=== PATIENT | male | born 1990 | race Caucasian/White ===

== ENCOUNTER 2017-10-17 17:55 | Inpatient (IN) | payer MEDICAID ==
[~2017-10-17] VITALS: Ht 172.7 cm; Wt 73.0 kg
[~2017-10-17 17:55] MED LIST: CEPH500C5 PO; HYDR-569 PO
[2017-10-17] MEDS ORDERED: CefTRIAXone 2gm/NS 100ml IVPB 100 ML IV ONE (20:45)
[2017-10-17] MEDS ORDERED: vancomycin/NS 1 GM ADD-VANTAGE 250 ML IV ONE (20:45)
[2017-10-17] MEDS ORDERED: normal saline 1000ML IV soln IV ONE (20:45)
[2017-10-17] MEDS ORDERED: temazepam 15mg capsule PO PRN (21:00)
[2017-10-17] MEDS ORDERED: iohexol 300mg/ml 100ml inj. ONE (21:00)
[2017-10-17 21:25] LABS: BASOPHILS % (AUTO) 0.2 % (0-1); EOSINOPHILS # (AUTO) 0.3 X10'3 (0-0.9); EOSINOPHILS % (AUTO) 3.4 % (0-6); HEMATOCRIT 33.8 % (42.0-52.0); HEMOGLOBIN 11.6 g/dl (14.0-17.9); LYMPHOCYTES # (AUTO) 2.1 X10'3 (1.1-4.8); LYMPHOCYTES % (AUTO) 27.3 % (21-51); MEAN CORPUSCULAR HEMOGLOBIN 28.5 PG (27.0-31.0); MEAN CORPUSCULAR HGB CONC 34.2 % (33.0-36.5); MEAN CORPUSCULAR VOLUME 83.2 FL (78-98); MEAN PLATELET VOLUME 6.7 FL (7.4-10.4); MONOCYTES # (AUTO) 0.6 X10'3 (0-0.9); MONOCYTES % (AUTO) 8.2 % (2-12); NEUTROPHILS # (AUTO) 4.6 X10'3 (1.8-7.7); NEUTROPHILS % (AUTO) 60.9 % (42-75); PLATELET COUNT 247 X10'3 (140-440); RED BLOOD COUNT 4.06 X10'6 (4.70-6.10); WHITE BLOOD COUNT 7.5 X10'3 (4.5-11.0)
[2017-10-17 21:34] LABS: INR 0.9 INR; PARTIAL THROMBOPLASTIN TIME 29 SECONDS (22-32); PROTHROMBIN TIME 9.4 SECONDS (9.0-12.0)
[2017-10-17] MEDS ORDERED: HYDROcodone/acetaminophen 5mg/325mg tablet PO ONE (21:40)
[2017-10-17 21:50] LABS: ALANINE AMINOTRANSFERASE 62 U/L (12-78); ALBUMIN 3.2 G/DL (3.4-5.0); ALBUMIN/GLOBULIN RATIO 0.7 (1.1-1.5); ALKALINE PHOSPHATASE 94 IU/L (46-116); ANION GAP 11 (8-16); ASPARTATE AMINO TRANSFERASE 34 U/L (10-37); BILIRUBIN,TOTAL 0.2 MG/DL (0.1-1.0); BLOOD UREA NITROGEN 12 MG/DL (7-18); BUN/CREATININE RATIO 16.4 (5.4-32.0); CHLORIDE 107 MMOL/L (99-107); CREATININE 0.73 MG/DL (0.60-1.10); GLUCOSE 96 MG/DL (70-104); MAGNESIUM 2.3 MG/DL (1.5-2.4); POTASSIUM 3.4 MMOL/L (3.5-5.1); SODIUM 145 MMOL/L (135-145); TOTAL CARBON DIOXIDE 27.4 MMOL/L (24-32); TOTAL PROTEIN 7.5 G/DL (6.4-8.2); eGFR > 90 ML/MIN
[2017-10-17 21:58] LABS: COLOR,URINE YELLOW (Yellow); GLUCOSE, URINE NEGATIVE (Neg); KETONES,URINE NEGATIVE (Neg); LEUKOCYTE ESTERASE ,URINE NEGATIVE (Neg); NITRITES, URINE NEGATIVE (Neg); OCCULT BLOOD,URINE NEGATIVE (Neg); PH,URINE 6.5 (4.8-8.0); PROTEIN,URINE NEGATIVE (Neg)
[2017-10-17 22:01] LABS: AMORPHOUS PHOSPHATES 2+; BACTERIA,URINE FEW /HPF (Neg); CLARITY,URINE SLIGHTLY CLOUDY (Clear); MUCUS STRANDS FEW /LPF (Neg); RBC,URINE NONE SEEN /HPF (0-2); SQUAMOUS EPITHELIAL CELL,UR FEW /LPF (FEW); UA COLLECTION TYPE VOIDED; WBC,URINE NONE SEEN /HPF (0-4)
[2017-10-17 22:02] LABS: C-REACTIVE PROTEIN 8.15 MG/DL (0.0-0.5)
[2017-10-17 22:03] LABS: URINE AMPHETAMINE SCREEN POSITIVE (Neg); URINE BARBITUATE SCREEN NEGATIVE (Neg); URINE BENZODIAZEPINES SCREEN NEGATIVE (Neg); URINE CANNABINOID SCREEN NEGATIVE (Neg); URINE COCAINE SCREEN NEGATIVE (Neg); URINE METHADONE SCREEN NEGATIVE (Neg); URINE OPIATE SCREEN POSITIVE (Neg); URINE PHENCYCLIDINE SCREEN NEGATIVE (Neg)
[2017-10-17] MEDS ORDERED: ketorolac trometh. 30mg/ml inj. IV ONE (22:10)
[2017-10-17] MEDS ORDERED: ondansetron/PF 4mg/2ml inj IV PRN (23:05)
[2017-10-17] MEDS ORDERED: mag hydrox/Alum hydrox/simeth 30ml oral suspension PO PRN (23:05)
[2017-10-17] MEDS ORDERED: HYDROcodone/acetaminophen 5mg/325mg tablet PO PRN (23:05)
[2017-10-17] MEDS ORDERED: magnesium hydroxide 30ml (MOM) UD suspension PO PRN (23:05)
[2017-10-17] MEDS ORDERED: acetaminophen 325mg tablet PO PRN ×2 (23:05)
[2017-10-18] MEDS: piperacillin/tazo 4.5gm/100ml 100 ML IV SCH ×3 (00:23→16:16)
[2017-10-18] MEDS: HYDROcodone/acetaminophen 10/325mg tab PO PRN ×2 (05:51→22:07)
[2017-10-18 06:41] LABS: BASOPHILS % (AUTO) 0.4 % (0-1); EOSINOPHILS # (AUTO) 0.2 X10'3 (0-0.9); EOSINOPHILS % (AUTO) 3.3 % (0-6); HEMATOCRIT 30.6 % (42.0-52.0); HEMOGLOBIN 10.6 g/dl (14.0-17.9); LYMPHOCYTES # (AUTO) 1.7 X10'3 (1.1-4.8); LYMPHOCYTES % (AUTO) 29.1 % (21-51); MEAN CORPUSCULAR HEMOGLOBIN 28.6 PG (27.0-31.0); MEAN CORPUSCULAR HGB CONC 34.5 % (33.0-36.5); MEAN PLATELET VOLUME 6.5 FL (7.4-10.4); MONOCYTES # (AUTO) 0.4 X10'3 (0-0.9); MONOCYTES % (AUTO) 6.2 % (2-12); NEUTROPHILS # (AUTO) 3.5 X10'3 (1.8-7.7); PLATELET COUNT 220 X10'3 (140-440); RED BLOOD COUNT 3.69 X10'6 (4.70-6.10); RED CELL DISTRIBUTION WIDTH 16.5 % (11.5-14.5); WHITE BLOOD COUNT 5.7 X10'3 (4.5-11.0)
[2017-10-18 07:01] LABS: ALBUMIN 2.7 G/DL (3.4-5.0); ANION GAP 10 (8-16); BLOOD UREA NITROGEN 9 MG/DL (7-18); BUN/CREATININE RATIO 14.1 (5.4-32.0); CALCIUM 8.5 MG/DL (8.5-10.1); CHLORIDE 109 MMOL/L (99-107); CREATININE 0.64 MG/DL (0.60-1.10); GLUCOSE 97 MG/DL (70-104); SODIUM 144 MMOL/L (135-145); TOTAL CARBON DIOXIDE 24.9 MMOL/L (24-32); eGFR > 90 ML/MIN
[2017-10-18] MEDS: enoxaparin 40mg/0.4ml syringe SUBCUT SCH (07:45)
[2017-10-18] MEDS ORDERED: vancomycin/NS 1 GM ADD-VANTAGE 250 ML IV SCH (10:00)
[2017-10-18] MEDS: vancomycin/NS 1 GM ADD-VANTAGE 250 ML IV SCH ×2 (10:05→22:07)
[2017-10-18] MEDS: morphine 4 MG/ML inj SYRINge IV PRN (11:54)
[2017-10-18 20:05] VITALS: BP 125/90
[2017-10-19] VITALS: BP 127/77
[2017-10-19] MEDS: piperacillin/tazo 4.5gm/100ml 100 ML IV SCH ×3 (03:52→16:31)
[2017-10-19] MEDS: vancomycin/NS 1 GM ADD-VANTAGE 250 ML IV SCH ×3 (05:01→22:56)
[2017-10-19 07:08] VITALS: BP 109/61
[2017-10-19] MEDS: enoxaparin 40mg/0.4ml syringe SUBCUT SCH (07:39)
[2017-10-19 07:56] LABS: BASOPHILS % (AUTO) 0.4 % (0-1); EOSINOPHILS # (AUTO) 0.3 X10'3 (0-0.9); HEMATOCRIT 34.1 % (42.0-52.0); HEMOGLOBIN 11.8 g/dl (14.0-17.9); LYMPHOCYTES # (AUTO) 1.6 X10'3 (1.1-4.8); LYMPHOCYTES % (AUTO) 24.4 % (21-51); MEAN CORPUSCULAR HEMOGLOBIN 29.1 PG (27.0-31.0); MEAN CORPUSCULAR HGB CONC 34.6 % (33.0-36.5); MEAN CORPUSCULAR VOLUME 84.1 FL (78-98); MEAN PLATELET VOLUME 6.2 FL (7.4-10.4); MONOCYTES # (AUTO) 0.4 X10'3 (0-0.9); MONOCYTES % (AUTO) 6.9 % (2-12); NEUTROPHILS # (AUTO) 4.1 X10'3 (1.8-7.7); NEUTROPHILS % (AUTO) 64.3 % (42-75); PLATELET COUNT 314 X10'3 (140-440); RED BLOOD COUNT 4.06 X10'6 (4.70-6.10); RED CELL DISTRIBUTION WIDTH 16.6 % (11.5-14.5); WHITE BLOOD COUNT 6.4 X10'3 (4.5-11.0)
[2017-10-19 08:05] LABS: ANION GAP 13 (8-16); BLOOD UREA NITROGEN 9 MG/DL (7-18); BUN/CREATININE RATIO 13.8 (5.4-32.0); CALCIUM 8.7 MG/DL (8.5-10.1); CHLORIDE 106 MMOL/L (99-107); CREATININE 0.65 MG/DL (0.60-1.10); GLUCOSE 110 MG/DL (70-104); POTASSIUM 3.5 MMOL/L (3.5-5.1); SODIUM 143 MMOL/L (135-145); TOTAL CARBON DIOXIDE 24.1 MMOL/L (24-32); eGFR > 90 ML/MIN
[2017-10-19] MEDS ORDERED: VANCOMYCIN LEVEL IV NR (09:30)
[2017-10-19 11:00] VITALS: BP 122/68
[2017-10-19] MEDS: HYDROcodone/acetaminophen 10/325mg tab PO PRN ×2 (11:00→16:31)
[2017-10-19 19:00] VITALS: BP 131/86
[2017-10-19] MEDS: lactobacillus rhamnosus 10,000 MMU CELLS/CAPSULE PO SCH (20:18)
[2017-10-19] MEDS: morphine 4 MG/ML inj SYRINge IV PRN (23:02)
[2017-10-20] VITALS: BP 114/85
[2017-10-20] MEDS: piperacillin/tazo 4.5gm/100ml 100 ML IV SCH ×3 (02:25→16:00)
[2017-10-20] MEDS ORDERED: VANCOMYCIN LEVEL IV NR ×2 (05:30→13:30)
[2017-10-20] MEDS: vancomycin/NS 1 GM ADD-VANTAGE 250 ML IV SCH (06:14)
[2017-10-20] MEDS: morphine 4 MG/ML inj SYRINge IV PRN ×2 (06:17→12:43)
[2017-10-20 06:31] LABS: BASOPHILS % (AUTO) 0.3 % (0-1); EOSINOPHILS # (AUTO) 0.2 X10'3 (0-0.9); HEMATOCRIT 35.3 % (42.0-52.0); HEMOGLOBIN 12.3 g/dl (14.0-17.9); LYMPHOCYTES # (AUTO) 2.1 X10'3 (1.1-4.8); LYMPHOCYTES % (AUTO) 30.7 % (21-51); MEAN CORPUSCULAR HEMOGLOBIN 28.7 PG (27.0-31.0); MEAN CORPUSCULAR HGB CONC 34.8 % (33.0-36.5); MEAN CORPUSCULAR VOLUME 82.6 FL (78-98); MONOCYTES # (AUTO) 0.5 X10'3 (0-0.9); MONOCYTES % (AUTO) 6.8 % (2-12); NEUTROPHILS # (AUTO) 4.1 X10'3 (1.8-7.7); NEUTROPHILS % (AUTO) 59.2 % (42-75); PLATELET COUNT 351 X10'3 (140-440); RED BLOOD COUNT 4.27 X10'6 (4.70-6.10); RED CELL DISTRIBUTION WIDTH 16.5 % (11.5-14.5)
[2017-10-20 06:43] LABS: ALBUMIN 3.3 G/DL (3.4-5.0); ANION GAP 9 (8-16); BLOOD UREA NITROGEN 14 MG/DL (7-18); BUN/CREATININE RATIO 17.9 (5.4-32.0); CALCIUM 9.1 MG/DL (8.5-10.1); CHLORIDE 106 MMOL/L (99-107); CREATININE 0.78 MG/DL (0.60-1.10); GLUCOSE 80 MG/DL (70-104); POTASSIUM 3.7 MMOL/L (3.5-5.1); SODIUM 142 MMOL/L (135-145); TOTAL CARBON DIOXIDE 27.5 MMOL/L (24-32); eGFR > 90 ML/MIN
[2017-10-20 07:00] VITALS: BP 110/57
[2017-10-20 07:54] LABS: VANCOMYCIN,TROUGH 12.8 UG/ML (6.0-14.0)
[2017-10-20] MEDS: enoxaparin 40mg/0.4ml syringe SUBCUT SCH (07:55)
[2017-10-20] MEDS: lactobacillus rhamnosus 10,000 MMU CELLS/CAPSULE PO SCH (07:55)
[2017-10-20 11:00] VITALS: BP 109/39
[2017-10-20] MEDS ORDERED: vancomycin inj 1,250 MG in normal saline 250ml IV soln 250 ML IV SCH (14:00)
[2017-10-20] MEDS ORDERED: SULF1TAB49 PO (15:28)
[2017-10-21] MEDS ORDERED: VANCOMYCIN LEVEL IV NR (13:30)
== END 2017-10-20 19:45 | disposition home or self-care (01) | DRG 383 ==
LOC: ER 17:56 → ED HOLD 23:05 → MED 3N 10-18 20:51
PROVIDERS: ADMIT Hospitalist; ATTEND Internal Medicine
PROC: BQ2S1ZZ Computerized Tomography (CT Scan) of Left Lower Extremity using Low Osmolar Contrast (ICD-10-PCS; principal; 2017-10-17)
DX: L03.116 Cellulitis of left lower limb (principal); F15.10 Other stimulant abuse, uncomplicated; F11.90 Opioid use, unspecified, uncomplicated; M79.89 Other specified soft tissue disorders; Z79.899 Other long term (current) drug therapy
CPT/HCPCS: 36415; 71045; 73610; 73701; 80048; 80053; 80202; 80305; 81001; 83605; 83735; 84145; 85025; 85610; 85651; 85730; 86140; 87040; 87070; 93005; 93971; 96365; 96375; 99285; J0696; J1650; J1885; J2270; J2543; J3370; J7030; Q9967

== ENCOUNTER 2018-01-30 00:32 | Emergency (ER) | payer MEDICAID ==
[~2018-01-30] VITALS: Ht 167.6 cm; Wt 59.1 kg
[~2018-01-30 00:32] MED LIST changes: -CEPH500C5 PO
[2018-01-30 00:38] VITALS: BP 129/60
[2018-01-30] MEDS ORDERED: ceFAZolin 1GM/D5W- ADD-VANTAGE 50 ML IV ONE (01:05)
[2018-01-30] MEDS ORDERED: normal saline 1000ml 1,000 ML IV ONE (01:05)
[2018-01-30] MEDS ORDERED: doxycycline hyclate 100mg tablet.DR PO ONE (01:05)
[2018-01-30] MEDS ORDERED: ondansetron/PF 4mg/2ml inj IV ONE (01:05)
[2018-01-30] MEDS ORDERED: iohexol 300mg/ml 100ml inj. ONE (01:29)
[2018-01-30] MEDS ORDERED: DOXY100C43 PO (01:33)
[2018-01-30] MEDS ORDERED: CEPH250T PO (01:33)
[2018-01-30] MEDS ORDERED: ondansetron 4mg rapidly disintigrating tab PO ONE (01:35)
[2018-01-30] MEDS ORDERED: cephalexin 250mg capsule PO ONE (01:35)
== END 2018-01-30 01:45 ==
LOC: ER 00:33
DX: T84.54XD Infection and inflammatory reaction due to internal left knee prosthesis, subsequent encounter (principal); F15.90 Other stimulant use, unspecified, uncomplicated; F11.90 Opioid use, unspecified, uncomplicated; Z98.890 Other specified postprocedural states; Z79.2 Long term (current) use of antibiotics; Z79.899 Other long term (current) drug therapy
CPT/HCPCS: 99284; J7030; Q9967

== ENCOUNTER 2023-11-11 14:46 | Outpatient (CLI) | payer MEDICAID ==
[~2023-11-11 14:46] MED LIST changes: +HYDR-4383 PO; -HYDR-569 PO
== END 2023-11-11 23:59 | disposition home or self-care (01) ==
LOC: RAD 14:46
PROVIDERS: ATTEND Physician Assistant
DX: R00.1 Bradycardia, unspecified (principal); F11.20 Opioid dependence, uncomplicated
CPT/HCPCS: 93005